=== PATIENT | female | born 2005 | race Caucasian/White ===

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

== ENCOUNTER 2023-01-03 18:51 | Inpatient (IN) | payer OTHER ==
[~2023-01-03] VITALS: Ht 172.7 cm; Wt 51.1 kg
[~2023-01-03 18:51] MED LIST changes: +CEFD300 PO; +ONDA4ODT MM; +Percocet 5-3251 EACH PO
[2023-01-03 19:40] LABS: Hemoglobin 11.8 g/dL (11.5-16.0); Mean Corpuscular HGB 29.8 pg (26.0-34.0); Mean Corpuscular HGB Conc 34.7 g/dL (31.5-36.5); Mean Corpuscular Volume 86 fL (80-100); Mean Platelet Volume 12.5 fL (9.1-12.4); Platelet Count 74 K/mm3 (150-400); RDW Coefficient Variation 13.3 % (11.7-14.2); Red Blood Cell Count 3.96 M/mm3 (3.80-5.20); White Blood Cell Count 13.51 K/mm3 (4.00-11.30)
[2023-01-03 20:03] LABS: Base Excess Venous -0.9 mmol/L; PCO2 Venous 20.9 mmHg (38-42)
[2023-01-03 20:07] LABS: Magnesium, Blood 1.4 mg/dL (1.6-2.4)
[2023-01-03 20:09] LABS: Albumin, Blood 3.4 g/dL (3.4-5.0); Albumin/Globulin Ratio 0.9 (0.8-1.8); Bilirubin, Total 1.1 mg/dL (0.1-1.0); Bun/Creatinine Ratio 11.8 (12.0-20.0); Calcium, Blood 8.6 mg/dL (8.5-10.1); Creatinine, Blood 1.36 mg/dL (0.40-1.00); Globulin, Blood 3.8 g/dL (2.2-4.0); Potassium, Blood 3.2 mmol/L (3.5-5.5); Total Protein, Blood 7.2 g/dL (6.4-8.2)
[2023-01-03 20:16] LABS: BAND PERCENT MAN 11 % (0-8); BASOPHILS PERCENT MAN 0 % (0-2); EOSINOPHILS PERCENT MAN 0 % (0-6); LYMPHOCYTES % ATYPICAL MANUAL 1 % (0-0); LYMPHOCYTES ABSOLUTE MAN 0.67 K/mm3 (0.84-5.20); LYMPHOCYTES PERCENT MAN 4 % (21-46); METAMYELOCYTE ABSOLUTE MAN 0.13 K/mm3 (0.00-0.00); METAMYELOCYTE PERCENT MAN 1 % (0-0); MONOCYTES ABSOLUTE MAN 1.08 K/mm3 (0.16-1.47); MONOCYTES PERCENT MAN 8 % (4-13); NEUTROPHILS ABSOLUTE MAN 11.61 K/mm3 (1.96-9.15); SEG NEUTROPHILS PERCENT MAN 75 % (41-73); TOTAL CELLS COUNTED 100
[2023-01-03 21:12] LABS: U Amphetamine Screen Not Detected; U Barbituate Screen Not Detected; U Benzodiazapine Screen Not Detected; U Buprenorphine Screen Not Detected; U Cannabinoids Screen DETECTED; U Cocaine Screen Not Detected; U Methadone Screen Not Detected; U Methamphetamine Screen Not Detected; U Opiates Screen Not Detected; U Oxycodone Screen DETECTED; U Phencyclidine Screen Not Detected; U Propoxyphene Screen Not Detected
[2023-01-03 23:05] LABS: Calcium, Ionized (POC) 1.05 mmol/L (1.10-1.46); Chloride (POC) 97 mmol/L (98-108); Creatinine (POC) 1.4 mg/dL (0.6-1.0); Glucose (ISTAT POC) 95 mg/dL (70-99); Hemoglobin (POC) 9.2 g/dL (12.0-16.0); Potassium (POC) 3.1 mmol/L (3.5-5.5); Sodium (POC) 133 mmol/L (135-148); Total CO2 (POC) 22 mmol/L (21-32)
[2023-01-03 23:12] LABS: Source, Urine Clean Catch
[2023-01-03 23:16] LABS: Bilirubin, Urine Neg (Neg); Blood, Urine 5+ (Neg); Glucose Qualitative, Urine Neg (Neg); Ketones, Urine 1+ (Neg); Leukocyte Esterase, Urine 2+ (Neg); Nitrite, Urine Neg (Neg); Protein, Urine 3+ (Neg); Specific Gravity, Urine 1.015 (1.003-1.022); Urobilinogen, Urine NORM (Normal)
[2023-01-03 23:25] LABS: Appearance, Urine Cloudy (Clear); Color, Urine Yellow (P-Yellow)
[2023-01-03 23:29] LABS: Amorphous Mod (0-Heavy); Bacteria Many /hpf; Hyaline Casts 0-2 /lpf (0-2); Red Blood Cells, Urine 50-100 /hpf (0-2); Squamous Epithelial Cells Rare /hpf (Few); White Blood Cells, Urine 25-50 /hpf (0-5)
[2023-01-04 00:40] VITALS: BP 97/55
[2023-01-04 04:30] VITALS: BP 91/50
--- NOTE | 2023-01-04 06:14 | NUR ---
SHIFT SUMMARY PT ARRIVED TO PCU AT 0040, THIS RN ASSUMED CARE. REPORT FROM [facility]. PT A&O X4, ALTHOUGH VERY ANXIOUS AT TIMES. PT MOODS LABILE AT TIMES RANGING FROM CRYING TO BEING HAPPY. PT REPORTS NAUSEA, DURING THIS SHIFT PT HAD ONE EPISODE OF VOMITTING A SMALL AMOUNT. MEDICATION PER EMAR. PT DENIES DIZZINESS. REPORTS FEELING "NUMB IN HANDS AND LEGS" BUT STATES IT IS "A LITTLE BETTER SINCE BEING IN HOSPITAL". VSS; ALTHOUGH SBP SOFT IN THE 90'S, MAPS >60. REMAINS ON RA, NO NEURO CHANGES. PT TEMP RANGING FROM 99.6 - 102.5. PT WARM/HOT TO THE TOUCH. MEDICATION PER EMAR ADMINISTERD. BLANKETS TAKEN OFF PT AND COOLING PAD PLACE UNDER PT. ROOM TEMP ADJUSTED WELL. TEMPERATURE IS IMPROVING. PT HAD A SHOWER SHORTLY AFTER ARRIVING TO PCU. PT NOT TOLERATING ALOT OF PO INTAKE, SNACKS PROVIDED HOWEVER PT DID NOT EAT MUCH AND FEEL NAUSEOUS. PT DENIES SOB, CP OR PRESSURE. ONLY REPORTS BACK PAIN. PT INTOLERANT TO SOME CARE AND INTERVENTIONS, SUCH PLACING ANOTHER IV. ANTIBIOTICS, K+, MAG, AND FLUIDS ADMINISTERED PER EMAR. PT'S FRIEND AT BEDSIDE AND STAYED WITH PT THROUGHOUT THE NIGHT. PT REPORTS BEING HOMELESS AND "LIVING EVERYWHERE RIGHT NOW, COUCH SURFING". PT NOW RESTING WELL IN ROOM, CALL LIGHT IN REACH. WILL UPDATE ONCOMING RN.
[2023-01-04 08:08] VITALS: BP 92/64
--- NOTE | 2023-01-04 11:38 | NUR ---
RN/DAY SHIFT SUMMARY MORNING REPORT RECIEVED AT BEDSIDE WITH GREETING OF THE PATIENT. THE PATIENT WAS THEN ASSESSED AND MEDICATIONS WERE GIVEN AT THIS TIME. THE PATIENT SEEMS TO BE IN GOOD SPIRITS WITH SLIGHT ANXIETY NOTED DURING THE ASSESSMENT. WILL CONTINUE TO MONITOR.
[2023-01-04 12:37] LABS: BASOPHILS ABSOLUTE AUTO 0.03 K/mm3 (0.00-0.23); BASOPHILS PERCENT AUTO 0 % (0-2); Hematocrit 29.7 % (33.0-51.0); LYMPHOCYTES ABSOLUTE AUTO 0.67 K/mm3 (0.84-5.20); LYMPHOCYTES PERCENT AUTO 6 % (21-46); MONOCYTES ABSOLUTE AUTO 0.74 K/mm3 (0.16-1.47); MONOCYTES PERCENT AUTO 7 % (4-13); Mean Corpuscular HGB 29.9 pg (26.0-34.0); Mean Corpuscular HGB Conc 33.7 g/dL (31.5-36.5); Mean Corpuscular Volume 89 fL (80-100); Mean Platelet Volume 12.6 fL (9.1-12.4); Platelet Count 59 K/mm3 (150-400); RDW Coefficient Variation 14.1 % (11.7-14.2); RDW Standard Deviation 45.6 fL (35.1-46.3); Red Blood Cell Count 3.34 M/mm3 (3.80-5.20); White Blood Cell Count 11.38 K/mm3 (4.00-11.30)
[2023-01-04 12:39] LABS: EOSINOPHILS ABSOLUTE AUTO 0.01 K/mm3 (0.00-0.68); EOSINOPHILS PERCENT AUTO 0 % (0-6); IMMATURE GRAN ABSOLUTE AUTO 0.11 K/mm3 (0.00-0.10); IMMATURE GRAN PERCENT AUTO 1 % (0-1); NEUTROPHILS ABSOLUTE AUTO 9.82 K/mm3 (1.96-9.15); NEUTROPHILS PERCENT AUTO 86 % (41-73)
[2023-01-04 14:23] VITALS: BP 98/63
[2023-01-04 14:29] LABS: Albumin, Blood 2.7 g/dL (3.4-5.0); Albumin/Globulin Ratio 0.8 (0.8-1.8); Bilirubin, Total 0.5 mg/dL (0.1-1.0); Bun/Creatinine Ratio 11.1 (12.0-20.0); Creatinine, Blood 1.08 mg/dL (0.40-1.00); Globulin, Blood 3.3 g/dL (2.2-4.0)
--- NOTE | 2023-01-04 15:39 | NUR ---
NURSE NOTE THIS RN NOTIFIED DR MORENO OF POSITIVE BLOOD CULTURES.
--- NOTE | 2023-01-04 15:40 | NUR ---
SHIFT SUMMARY PATIENT ARRIVED TO MEDICAL FLOOR AT 1413. PATIENT HAS HAD NO PAIN, SOB. PATIENT HAS HAD NAUSEA AND VOMITTING. THIS RN GOT ADDITIONAL ORDERS FOR NAUSEA ZOFRAN IS NOT EFFECTIVE. PATIENT HAS HAD POSITIVE BLOOD CULTURES COME BACK, DR NOTIFIED. BED IN LOCKED AND LOWEST POSITION. CALL LIGHT IN PLACE. WILL MONITOR UNTIL SHIFT CHANGE.
[2023-01-04 20:20] VITALS: BP 104/66
--- NOTE | 2023-01-04 22:56 | NUR ---
START OF SHIFT THIS STUDENT NURSE ASSUMED CARE OF PT AT 1700 UNDER THE OBSERVATION OF NURSE DOROTHY WADE. PT VISITOR AT BEDSIDE. PT COMPLAINS OF NAUSEA, ZOFRAN ADMINISTERED. TYLENOL ADMINISTERED FOR MILD PAIN AND TEMPERATURE OF 99.8. PT INCONTINENT OF BOWELS AROUND 2119, INDEPENDENTLY AMBULATED TO SHOWER. BED CHANGED. PT REQUESTED MELATONIN STATING SHE TAKES IT AT HOME, DR NOTIFIED AND MEDICATION ORDERED. CIWA PERFORMED WITH A RESULT OF 10 DUE TO NAUSEA, TREMORS, AND ANXIETY. PT A&O X4, WILL CONTINUE TO MONITOR. PT LEFT IN A STATE OF COMFORT AND SAFETY WITH BED RAILS UP, BED IN LOW POSITION, NONSKID SOCKS IN PLACE, AND CALL LIGHT WITHIN REACH. WILL CONTINUE TO MONITOR. PULSE ELEVATED, WILL CONTINUE TO MONITOR.
--- NOTE | 2023-01-05 03:27 | NUR ---
SHIFT SUMMARY THIS STUDENT NURSE ADDRESSED THE PT'S SEPSIS THROUGH THE MANAGEMENT OF HER ELEVATED TEMPERATURE BY ADMINISTERING TYLENOL AND UTELIZING COOL THERAPY. CIWAS PERFORMED Q4, PT REMAINED STABLE. PT A&O X4, COMPLAINTS OF NAUSEA BUT WERE ADDRESSED THROUGH THE ADMINISTRATION OF PRESCRIBED ZOFRAN AND GIVING HER SALTINES AND MORE WATER. PT VERBALIZES SOME ANXIETY SURROUNDING HOSPITAL STAY, BEING ALONE, BUT IS ABLE TO BE COMFORTED AND REDIRECTED. REQUESTS CONVERSATION WITH PROVIDER IN THE AM REGARDING D/CING HOME ON ORAL ANTIBIOTICS. PT REMAINED IN A POSITION OF SAFETY AND COMFORT WITH BED RAILS RAISED, BED IN LOW POSITION, NONSKID SOCKS IN PLACE, AND CALL LIGHT WITHIN REACH. WILL CONTINUE TO MONITOR THROUGHOUT MY SHIFT.
--- NOTE | 2023-01-05 04:23 | NUR ---
MD NOTIFIED OF BLOOD CX RESULTS (GM NEG BACILLI). MD ORDERED URINE TOX SCREEN.
[2023-01-05 04:29] VITALS: BP 91/62
[2023-01-05 05:45] LABS: U Amphetamine Screen Not Detected; U Barbituate Screen Not Detected; U Benzodiazapine Screen Not Detected; U Buprenorphine Screen Not Detected; U Cannabinoids Screen DETECTED; U Cocaine Screen Not Detected; U Methadone Screen Not Detected; U Methamphetamine Screen Not Detected; U Opiates Screen Not Detected; U Oxycodone Screen Not Detected; U Phencyclidine Screen Not Detected; U Propoxyphene Screen Not Detected
--- NOTE | 2023-01-05 06:09 | NUR ---
I HAVE OBSERVED STUDENTS ASSESSMENTS AND INTERACTIONS WITH PT AND READ HER DOCUMENTATIONS. I AGREE WITH THE ABOVE
[2023-01-05 09:12] LABS: HIV AB/P24 AG SCREEN Non Reactive (Non Reactive)
[2023-01-05 10:49] LABS: BASOPHILS ABSOLUTE AUTO 0.02 K/mm3 (0.00-0.23); BASOPHILS PERCENT AUTO 0 % (0-2); EOSINOPHILS ABSOLUTE AUTO 0.02 K/mm3 (0.00-0.68); EOSINOPHILS PERCENT AUTO 0 % (0-6); Hematocrit 28.6 % (33.0-51.0); Hemoglobin 9.8 g/dL (11.5-16.0); IMMATURE GRAN ABSOLUTE AUTO 0.07 K/mm3 (0.00-0.10); IMMATURE GRAN PERCENT AUTO 1 % (0-1); LYMPHOCYTES ABSOLUTE AUTO 0.87 K/mm3 (0.84-5.20); LYMPHOCYTES PERCENT AUTO 9 % (21-46); MONOCYTES ABSOLUTE AUTO 0.72 K/mm3 (0.16-1.47); MONOCYTES PERCENT AUTO 7 % (4-13); Mean Corpuscular HGB 30.2 pg (26.0-34.0); Mean Corpuscular HGB Conc 34.3 g/dL (31.5-36.5); Mean Corpuscular Volume 88 fL (80-100); Mean Platelet Volume 12.8 fL (9.1-12.4); NEUTROPHILS ABSOLUTE AUTO 8.04 K/mm3 (1.96-9.15); NEUTROPHILS PERCENT AUTO 83 % (41-73); Platelet Count 76 K/mm3 (150-400); RDW Coefficient Variation 14.6 % (11.7-14.2); RDW Standard Deviation 47.5 fL (35.1-46.3); Red Blood Cell Count 3.25 M/mm3 (3.80-5.20); White Blood Cell Count 9.74 K/mm3 (4.00-11.30)
[2023-01-05 10:55] LABS: Bun/Creatinine Ratio 10.8 (12.0-20.0); Calcium, Blood 8.5 mg/dL (8.5-10.1); Creatinine, Blood 0.83 mg/dL (0.40-1.00); Potassium, Blood 3.3 mmol/L (3.5-5.5)
[2023-01-05 12:01] LABS: BASOPHILS PERCENT MAN 0 % (0-2); EOSINOPHILS PERCENT MAN 0 % (0-6); MONOCYTES PERCENT MAN 0 % (4-13); TOTAL CELLS COUNTED 0
[2023-01-05 15:46] VITALS: BP 106/70
[2023-01-05 15:48] VITALS: BP 103/70
--- NOTE | 2023-01-05 18:11 | NUR ---
END OF SHIFT NOTE PT&OX4, CALLS BRANDI. PT REPORTS NAUSEA, PRN ANTI-NAUSEA MEDS GIVEN AND EFFECTIVE. PT REMAINS TEARFUL AND ANXIOUS THROUGHOUT THE DAY IN REGARDS TO CURRENT ILLNESS. PT REQUESTED TO "JUST LOOK AT THE AMA PAPERWORK" TO SEE WHAT IT SAYS. SHE ASKED NURSES IF SHE JUST WENT HOME AMA, IF THEY WOULD SEND HER THE RESULTS OF HER LAB RESULTS ONCE THEY ARE BACK. NURSES EDUCATED PT ON WHY IT WOULD NOT BE A GOOD DECISION TO LEAVE BEFORE SHE HAS COMPLETED HER ANTIBIOTICS. PT DID NOT TALK ANY FURTHER ONCE THE NURSES HAD THAT CONVERSATION WITH HER. DOCTOR NOTIFIED AND CAME TO VISIT WITH THE PT AGAIN THIS AFTERNOON. ORDERED PT'S HOME ANTIPSYCHOTIC MEDS WELL SEROQUEL FOR THE REST OF PT'S STAY AT THE HOSPITAL. WILL CONTINUE PLAN OF CARE.
[2023-01-05 19:24] VITALS: BP 112/68
[2023-01-06 03:07] VITALS: BP 102/68
--- NOTE | 2023-01-06 04:05 | NUR ---
SHIFT SUMMARY PATIENT IS ALERT AND ORIENTED. PATIENT HAS HAD NO ACUTE EVENTS THIS SHIFT. PATIENT HAS NOT REPORTED ANY PAIN, SOB OR VOMITTING THIS SHIFT. PATIENT REPORTED HAVING NAUSEA AND MEDICATED PER EMAR WITH RELIEF. PATIENT HAD FRIEND STAY OVERNIGHT FOR COMFORT. PATIENT HAS BEEN PLEASENT AND COOPERATIVE WITH CARE. PATIENT HAS BEEN RESTING MOST OF SHIFT WITH MINOR INTERRUPTIONS. BED IN LOCKED AND LOWEST POSITION. CALL LIGHT IN PLACE. WILL MONITOR UNTIL SHIFT CHANGE.
[2023-01-06 05:16] LABS: BASOPHILS ABSOLUTE AUTO 0.03 K/mm3 (0.00-0.23); BASOPHILS PERCENT AUTO 0 % (0-2); EOSINOPHILS ABSOLUTE AUTO 0.07 K/mm3 (0.00-0.68); EOSINOPHILS PERCENT AUTO 1 % (0-6); Hematocrit 25.7 % (33.0-51.0); Hemoglobin 8.9 g/dL (11.5-16.0); IMMATURE GRAN ABSOLUTE AUTO 0.04 K/mm3 (0.00-0.10); IMMATURE GRAN PERCENT AUTO 1 % (0-1); LYMPHOCYTES ABSOLUTE AUTO 1.36 K/mm3 (0.84-5.20); LYMPHOCYTES PERCENT AUTO 19 % (21-46); MONOCYTES ABSOLUTE AUTO 0.62 K/mm3 (0.16-1.47); MONOCYTES PERCENT AUTO 9 % (4-13); Mean Corpuscular HGB 30.2 pg (26.0-34.0); Mean Corpuscular HGB Conc 34.6 g/dL (31.5-36.5); Mean Corpuscular Volume 87 fL (80-100); NEUTROPHILS ABSOLUTE AUTO 5.15 K/mm3 (1.96-9.15); NEUTROPHILS PERCENT AUTO 71 % (41-73); Platelet Count 88 K/mm3 (150-400); RDW Coefficient Variation 14.8 % (11.7-14.2); RDW Standard Deviation 47.4 fL (35.1-46.3); Red Blood Cell Count 2.95 M/mm3 (3.80-5.20); White Blood Cell Count 7.27 K/mm3 (4.00-11.30)
[2023-01-06 05:40] LABS: Bun/Creatinine Ratio 6.3 (12.0-20.0); Creatinine, Blood 0.79 mg/dL (0.40-1.00); Potassium, Blood 2.9 mmol/L (3.5-5.5)
[2023-01-06 06:12] LABS: HBSAG SCREEN Negative (Negative); HCV AB Non Reactive (Non Reactive); HEP A AB, IGM Negative (Negative); HEP B CORE AB, TOT Negative (Negative)
[2023-01-06 08:10] VITALS: BP 109/65
[2023-01-06 14:58] VITALS: BP 116/79
[2023-01-06] MEDS ORDERED: LATUDA60 M1 PO (17:52)
[2023-01-06] MEDS ORDERED: AMOX875 PO (17:52)
--- NOTE | 2023-01-06 18:26 | NUR ---
DC HOME WRITTEN & VERBAL DC INSTRUCTIONS GIVEN TO PT WITH FRIEND PRESENT. BOTH VERBALIZED GOOD UNDERSTANDING. POWER GLIDE DC'D WITH CATH TIP INTACT, NO REDNESS OR SWELLING NOTED. NEW SCRIPTS FAXED TO [facility] ON [address] PER PT REQUEST. REITERATED TO PT THAT SHE IS TO HAVE LAB WORK DRAWN PER MD ORDER ON WED. LAB ORDER SLIP PROVIDED TO PT IN DC PKT. PT AMBULATED SELF TO PRIVATE VEHICLE ACCOMPANIED BY FRIEND.
== END 2023-01-06 18:20 | disposition home or self-care (01) | DRG 872 ==
LOC: ER 18:51 → MEDS 23:29 → PCU 23:29 → MEDS 01-04 14:13
PROVIDERS: Emergency Medicine; Family Medicine; Student in an Organized Health Care Education/Training Program; ADMIT Internal Medicine
DX: A41.51 Sepsis due to Escherichia coli [E. coli] (principal); E87.1 Hypo-osmolality and hyponatremia; N17.9 Acute kidney failure, unspecified; F19.20 Other psychoactive substance dependence, uncomplicated; N12 Tubulo-interstitial nephritis, not specified as acute or chronic; R65.20 Severe sepsis without septic shock; E87.6 Hypokalemia; R06.4 Hyperventilation; F41.0 Panic disorder [episodic paroxysmal anxiety]; E83.42 Hypomagnesemia; D72.825 Bandemia; S16.1XXA Strain of muscle, fascia and tendon at neck level, initial encounter; F31.9 Bipolar disorder, unspecified; F12.20 Cannabis dependence, uncomplicated; G89.29 Other chronic pain; M54.2 Cervicalgia; D69.6 Thrombocytopenia, unspecified; F17.290 Nicotine dependence, other tobacco product, uncomplicated; Z79.2 Long term (current) use of antibiotics; Z79.891 Long term (current) use of opiate analgesic; Z79.899 Other long term (current) drug therapy; X58.XXXA Exposure to other specified factors, initial encounter
CPT/HCPCS: 36415; 71046; 74177; 76700; 76857; 80047; 80048; 80053; 81001; 82550; 82803; 83605; 83690; 83735; 84702; 85014; 85025; 86704; 86708; 86803; 87040; 87077; 87086; 87186; 87340; 87389; 93005; 93010; 96361; 96374; 96375; 99285-25; A9270; J0696; J0780; J2060; J2405; J3411; J3475; J3480; J7030; J7050; Q9967

== ENCOUNTER 2023-03-07 05:40 | Emergency (ER) | payer OTHER ==
[~2023-03-07] VITALS: Ht 170.2 cm; Wt 52.2 kg
[~2023-03-07 05:40] MED LIST changes: +AMOX875 PO; +LATUDA60 M1 PO
[2023-03-07] MEDS ORDERED: LURASIDONE HCL60 MG PO (05:52)
[2023-03-07 10:12] VITALS: BP 99/72
== END 2023-03-07 10:39 | disposition home or self-care (01) ==
LOC: ER 05:40
DX: F10.129 Alcohol abuse with intoxication, unspecified (principal); F17.290 Nicotine dependence, other tobacco product, uncomplicated; Z91.030 Bee allergy status
CPT/HCPCS: 96374; 99284-25; A9270; C9113; J2405

== ENCOUNTER → 2023-04-26 | Outpatient (CLI) | payer OTHER ==
[~2023-04-26] MED LIST changes: +Bactrim Ds Tab1 EACH PO; +LURASIDONE HCL60 MG PO
== END | disposition home or self-care (01) ==
LOC: LAB 16:47 → LAB SHORT 16:47
DX: R30.0 Dysuria (principal)
CPT/HCPCS: 87077; 87086; 87186

== ENCOUNTER 2023-04-29 18:13 | Emergency (ER) | payer OTHER ==
[~2023-04-29] VITALS: Ht 167.6 cm; Wt 47.6 kg
[~2023-04-29 18:13] MED LIST changes: -Bactrim Ds Tab1 EACH PO
[2023-04-29 19:00] LABS: BASOPHILS ABSOLUTE AUTO 0.05 K/mm3 (0.00-0.23); BASOPHILS PERCENT AUTO 1 % (0-2); EOSINOPHILS ABSOLUTE AUTO 0.03 K/mm3 (0.00-0.68); EOSINOPHILS PERCENT AUTO 1 % (0-6); Hematocrit 39.2 % (33.0-51.0); Hemoglobin 13.1 g/dL (11.5-16.0); IMMATURE GRAN ABSOLUTE AUTO 0.01 K/mm3 (0.00-0.10); IMMATURE GRAN PERCENT AUTO 0 % (0-1); LYMPHOCYTES ABSOLUTE AUTO 1.91 K/mm3 (0.84-5.20); LYMPHOCYTES PERCENT AUTO 44 % (21-46); MONOCYTES PERCENT AUTO 7 % (4-13); Mean Corpuscular HGB 29.2 pg (26.0-34.0); Mean Corpuscular HGB Conc 33.4 g/dL (31.5-36.5); Mean Corpuscular Volume 87 fL (80-100); Mean Platelet Volume 10.9 fL (9.1-12.4); NEUTROPHILS ABSOLUTE AUTO 2.02 K/mm3 (1.96-9.15); NEUTROPHILS PERCENT AUTO 47 % (41-73); Platelet Count 187 K/mm3 (150-400); RDW Coefficient Variation 13.1 % (11.7-14.2); RDW Standard Deviation 42.5 fL (35.1-46.3); Red Blood Cell Count 4.49 M/mm3 (3.80-5.20); White Blood Cell Count 4.32 K/mm3 (4.00-11.30)
[2023-04-29 19:13] LABS: Albumin, Blood 4.5 g/dL (3.4-5.0); Albumin/Globulin Ratio 1.5 (0.8-1.8); Bilirubin, Total 0.6 mg/dL (0.1-1.0); Bun/Creatinine Ratio 6.5 (12.0-20.0); Calcium, Blood 9.3 mg/dL (8.5-10.1); Creatinine, Blood 0.77 mg/dL (0.40-1.00); Globulin, Blood 3.1 g/dL (2.2-4.0); Potassium, Blood 3.6 mmol/L (3.5-5.5); Total Protein, Blood 7.6 g/dL (6.4-8.2)
[2023-04-29 20:28] LABS: Source, Urine Clean Catch
[2023-04-29 20:31] LABS: Appearance, Urine Hazy (Clear); Bilirubin, Urine Neg (Neg); Blood, Urine 2+ (Neg); Color, Urine Yellow (P-Yellow); Glucose Qualitative, Urine Neg (Neg); Ketones, Urine Neg (Neg); Leukocyte Esterase, Urine 3+ (Neg); Nitrite, Urine Neg (Neg); Protein, Urine 3+ (Neg); Urobilinogen, Urine NORM (Normal)
[2023-04-29 20:51] LABS: Bacteria Mod /hpf; Red Blood Cells, Urine 0-2 /hpf (0-2); Squamous Epithelial Cells Mod /hpf (Few)
[2023-04-29] MEDS ORDERED: ONDA4ODT MM (22:11)
[2023-04-29] MEDS ORDERED: Bactrim Ds Tab1 EACH PO (22:11)
[2023-04-29 22:30] VITALS: BP 110/58
== END 2023-04-29 23:00 | disposition home or self-care (01) ==
LOC: ER 18:13
PROVIDERS: Physician Assistant
DX: N39.0 Urinary tract infection, site not specified (principal); Z91.09 Other allergy status, other than to drugs and biological substances; F17.290 Nicotine dependence, other tobacco product, uncomplicated
CPT/HCPCS: 76770; 80053; 81001; 81025; 83605; 85025; 87086; 96361; 96365; 96375; 99284-25; A9270; J0696; J1885; J7030

== ENCOUNTER → 2024-09-16 | Outpatient (CLI) | payer OTHER ==
[~2024-09-16] MED LIST changes: +AMOCLA250S PO; +AZIT100SU PO; +Bactrim Ds Tab1 EACH PO; +CEPH500 PO
[2024-09-20 15:31] LABS: HSV 1 SUBTYPE BY PCR Detected; HSV 2 SUBTYPE BY PCR Not Detected; HSV SUBTYPE SOURCE VULVA
== END | disposition home or self-care (01) ==
LOC: LAB 17:15 → LAB SHORT 17:15
PROVIDERS: Physician Assistant Medical
DX: A60.00 Herpesviral infection of urogenital system, unspecified (principal)
CPT/HCPCS: 87529